=== PATIENT | female | born 1960 | race Caucasian/White ===

== ENCOUNTER 2021-03-20 11:26 | Emergency (ER) | payer MEDICARE, OTHER ==
[~2021-03-20] VITALS: Ht 157.5 cm; Wt 102.3 kg
[~2021-03-20 11:26] MED LIST: ALBU6.7H9 INH; AMLO2.5T2 PO; EST1T PO; LACT1CAP26 PO; LORA1TAB PO; METO50TA7 PO; OMEP20CA15 PO; OXYC1TAB17 PO; POTA10TA36 PO; THYR32.510 PO
[2021-03-20 12:04] VITALS: BP 172/108
[2021-03-20] MEDS ORDERED: BENZ-16 PO (12:58)
== END 2021-03-20 13:13 | disposition home or self-care (01) ==
LOC: ER 11:27
DX: U07.1 COVID-19 (principal); R53.83 Other fatigue; R07.89 Other chest pain; R06.02 Shortness of breath; R05 Cough; R42 Dizziness and giddiness; I10 Essential (primary) hypertension; E03.9 Hypothyroidism, unspecified; G89.29 Other chronic pain; Z98.890 Other specified postprocedural states; Z88.1 Allergy status to other antibiotic agents; Z91.040 Latex allergy status; Z88.8 Allergy status to other drugs, medicaments and biological substances; Z79.899 Other long term (current) drug therapy
CPT/HCPCS: 71045; 99283

== ENCOUNTER 2021-03-23 09:43 | Inpatient (IN) | payer MEDICARE, OTHER ==
[~2021-03-23] VITALS: Ht 157.5 cm; Wt 72.9 kg
[~2021-03-23 09:43] MED LIST changes: +BENZ-16 PO
[2021-03-23 11:31] LABS: ALANINE AMINOTRANSFERASE 69 U/L (12-78); ALBUMIN 3.3 G/DL (3.4-5.0); ALBUMIN/GLOBULIN RATIO 0.7 (1.1-1.5); ALKALINE PHOSPHATASE 321 IU/L (46-116); ANION GAP 13 (8-16); ASPARTATE AMINO TRANSFERASE 47 U/L (10-37); BILIRUBIN,TOTAL 0.7 MG/DL (0.1-1.0); BLOOD UREA NITROGEN 10 MG/DL (7-18); BUN/CREATININE RATIO 9.3 (6.6-38.0); C-REACTIVE PROTEIN 6.93 MG/DL (0.0-0.5); CALCIUM 8.5 MG/DL (8.5-10.1); CHLORIDE 101 MMOL/L (99-107); CREATININE 1.07 MG/DL (0.40-0.90); GLUCOSE 113 MG/DL (70-104); SODIUM 139 MMOL/L (135-145); TOTAL CARBON DIOXIDE 25.1 MMOL/L (24-32); TOTAL PROTEIN 8.3 G/DL (6.4-8.2); eGFR 52 ML/MIN
[2021-03-23 11:33] LABS: BASOPHILS % (AUTO) 0.1 % (0-1); EOSINOPHILS % (AUTO) 0.1 % (0-6); HEMATOCRIT 46.9 % (35.0-45.0); HEMOGLOBIN 15.4 g/dl (12.0-16.0); LYMPHOCYTES # (AUTO) 0.6 X10'3 (1.1-4.8); LYMPHOCYTES % (AUTO) 9.8 % (21-51); MEAN CORPUSCULAR HEMOGLOBIN 30.3 PG (27.0-31.0); MEAN CORPUSCULAR HGB CONC 32.9 g/dL (33.0-36.5); MEAN CORPUSCULAR VOLUME 92.2 FL (78-98); MONOCYTES # (AUTO) 0.5 X10'3 (0-0.9); MONOCYTES % (AUTO) 7.3 % (2-12); NEUTROPHILS # (AUTO) 5.4 X10'3 (1.8-7.7); NEUTROPHILS % (AUTO) 82.7 % (42-75); PLATELET COUNT 243 X10'3 (140-440); RED BLOOD COUNT 5.08 X10'6 (4.20-5.60); RED CELL DISTRIBUTION WIDTH 13.7 % (11.5-14.5); WHITE BLOOD COUNT 6.6 X10'3 (4.5-11.0)
[2021-03-23] MEDS ORDERED: ondansetron/PF 4mg/2ml inj IV ONE (12:00)
[2021-03-23] MEDS ORDERED: potassium Cl 40MEQ/1/2NS 520ml 520 ML IV PRN ×2 (12:50)
[2021-03-23] MEDS ORDERED: magnesium 2GM in 50ml NS 50 ML IV PRN (12:50)
[2021-03-23] MEDS ORDERED: acetaminophen 325mg tablet PO PRN ×2 (12:50)
[2021-03-23] MEDS ORDERED: mag hydrox/Alum hydrox/simeth 30ml oral suspension PO PRN (12:50)
[2021-03-23] MEDS ORDERED: ALBUTEROL INHALER 1 PUFF/90 MCG INHALER IH PRN (12:50)
[2021-03-23] MEDS ORDERED: magnesium 4gm in 100ml NS 100 ML IV PRN (12:50)
[2021-03-23] MEDS ORDERED: ondansetron/PF 4mg/2ml inj IV PRN (12:50)
[2021-03-23] MEDS ORDERED: HYDROcodone/acetaminophen 5mg/325mg tablet PO PRN (12:50)
[2021-03-23] MEDS ORDERED: potassium Cl 20 mEq SR tablet PO PRN (12:50)
[2021-03-23] MEDS ORDERED: magnesium hydroxide 30ml (MOM) UD suspension PO PRN (12:50)
[2021-03-23] MEDS ORDERED: metoprolol succinate 25mg (24-HOUR) SR. Tablet PO ONE (13:45)
[2021-03-23] MEDS: normal saline 1000ml 1,000 ML IV SCH ×2 (14:06→22:50)
[2021-03-23] MEDS: docusate sod 100mg capsule PO SCH (20:00)
[2021-03-23] MEDS: enoxaparin 50mg/0.5ml (from 3ml vial) syringe SUBCUT SCH (20:00)
[2021-03-23] MEDS: K and/or MAG REPLACEMENT MC SCH (20:00)
[2021-03-23] MEDS: dexamethasone inj 6 MG in normal saline 50ml IV soln 50 ML IV SCH (21:11)
--- NOTE | 2021-03-24 04:41 | NUR ---
PT SLEEPING AT THIS TIME. WILL CONTINUE TO MONITOR
[2021-03-24] MEDS: normal saline 1000ml 1,000 ML IV SCH ×2 (07:16→14:55)
--- NOTE | 2021-03-24 07:58 | NUR ---
PT C/O UUPSET STOMACH. MAALOX GIVEN
[2021-03-24] MEDS: docusate sod 100mg capsule PO SCH ×2 (08:00→20:00)
[2021-03-24] MEDS: K and/or MAG REPLACEMENT MC SCH ×2 (08:00→20:00)
[2021-03-24] MEDS: HYDROcodone/acetaminophen 10/325mg tab PO PRN ×2 (08:41→14:51)
[2021-03-24] MEDS: metoprolol succinate 25mg (24-HOUR) SR. Tablet PO SCH (08:42)
[2021-03-24 08:53] VITALS: BP 132/68
[2021-03-24] MEDS: dexamethasone inj 6 MG in normal saline 50ml IV soln 50 ML IV SCH ×2 (09:55→19:32)
[2021-03-24 10:21] LABS: BASOPHILS % (AUTO) 0.2 % (0-1); EOSINOPHILS % (AUTO) 0 % (0-6); HEMATOCRIT 41.7 % (35.0-45.0); HEMOGLOBIN 13.7 g/dl (12.0-16.0); LYMPHOCYTES # (AUTO) 0.7 X10'3 (1.1-4.8); LYMPHOCYTES % (AUTO) 13.2 % (21-51); MEAN CORPUSCULAR HGB CONC 32.8 g/dL (33.0-36.5); MEAN CORPUSCULAR VOLUME 91.5 FL (78-98); MEAN PLATELET VOLUME 8.7 FL (7.4-10.4); MONOCYTES # (AUTO) 0.4 X10'3 (0-0.9); MONOCYTES % (AUTO) 7.7 % (2-12); NEUTROPHILS # (AUTO) 4.2 X10'3 (1.8-7.7); NEUTROPHILS % (AUTO) 78.9 % (42-75); PLATELET COUNT 213 X10'3 (140-440); RED BLOOD COUNT 4.56 X10'6 (4.20-5.60); RED CELL DISTRIBUTION WIDTH 13.6 % (11.5-14.5); WHITE BLOOD COUNT 5.3 X10'3 (4.5-11.0)
[2021-03-24 10:22] LABS: D-DIMER 0.35 MG/L FEU (0-0.50)
[2021-03-24 10:29] LABS: ALANINE AMINOTRANSFERASE 50 U/L (12-78); ALBUMIN 2.5 G/DL (3.4-5.0); ALBUMIN/GLOBULIN RATIO 0.6 (1.1-1.5); ALKALINE PHOSPHATASE 237 IU/L (46-116); ANION GAP 12 (8-16); ASPARTATE AMINO TRANSFERASE 35 U/L (10-37); BILIRUBIN,TOTAL 0.6 MG/DL (0.1-1.0); BLOOD UREA NITROGEN 9 MG/DL (7-18); BUN/CREATININE RATIO 11.1 (6.6-38.0); C-REACTIVE PROTEIN 5.95 MG/DL (0.0-0.5); CALCIUM 7.2 MG/DL (8.5-10.1); CHLORIDE 107 MMOL/L (99-107); CREATININE 0.81 MG/DL (0.40-0.90); GLUCOSE 92 MG/DL (70-104); MAGNESIUM 1.8 MG/DL (1.5-2.4); POTASSIUM 3.5 MMOL/L (3.5-5.1); SODIUM 143 MMOL/L (135-145); TOTAL CARBON DIOXIDE 23.6 MMOL/L (24-32); TOTAL PROTEIN 6.9 G/DL (6.4-8.2); eGFR 72 ML/MIN
[2021-03-24 12:50] VITALS: BP 135/62
[2021-03-24 18:00] VITALS: BP 137/66
--- NOTE | 2021-03-24 19:14 | NUR ---
patient continues on o2 /3L NC O2 SATS 94% . C/O BACK AND NECK PAIN WHICH IS CHRONIC CONDITION FOR PATIENT MEDICATED WITH NORCO WITH EFFECT. C/O ANXIETY IS NORMALLY ON ATIVAN Q12HRS. DR NICHOLAS PAGED AND ORDER GIVEN FOR ATIVAN. WILL CONTINUE TO MONITOR
[2021-03-24] MEDS: enoxaparin 50mg/0.5ml (from 3ml vial) syringe SUBCUT SCH (19:32)
[2021-03-24] MEDS: LORazepam 1 MG tablet PO PRN (19:58)
[2021-03-24 23:52] VITALS: BP 150/84
--- NOTE | 2021-03-25 00:04 | NUR ---
Problems reprioritized. Patient report given, questions answered & plan of care reviewed with audi TERRY.
--- NOTE | 2021-03-25 00:15 | NUR ---
Patient in room COVID 05. I have received report from FREDDIE and had the opportunity to ask questions and assume patient care.
[2021-03-25] MEDS: normal saline 1000ml 1,000 ML IV SCH ×2 (00:29→12:00)
[2021-03-25 02:00] VITALS: BP 120/71
[2021-03-25] MEDS ORDERED: ROSU5TAB12 PO (03:15)
[2021-03-25] MEDS ORDERED: OMEP40CA21 PO (03:15)
[2021-03-25] MEDS ORDERED: THY60T PO (03:15)
[2021-03-25] MEDS ORDERED: AMLO10TA13 PO (03:15)
[2021-03-25] MEDS: HYDROcodone/acetaminophen 10/325mg tab PO PRN ×4 (03:21→20:29)
[2021-03-25] MEDS ORDERED: MONT10TA32 PO (03:41)
[2021-03-25] MEDS ORDERED: VENL150C58 PO (03:41)
[2021-03-25] MEDS ORDERED: FLUT1BLS4 INH (03:41)
--- NOTE | 2021-03-25 06:30 | NUR ---
Patient in room COVID 05. I have received report from HARRISON RIDDLE and had the opportunity to ask questions and assume patient care.
[2021-03-25 06:59] VITALS: BP 141/67
[2021-03-25] MEDS: K and/or MAG REPLACEMENT MC SCH ×2 (08:00→20:00)
[2021-03-25] MEDS: docusate sod 100mg capsule PO SCH ×2 (08:00→20:00)
[2021-03-25] MEDS: dexamethasone inj 6 MG in normal saline 50ml IV soln 50 ML IV SCH ×2 (09:22→20:29)
[2021-03-25] MEDS: enoxaparin 50mg/0.5ml (from 3ml vial) syringe SUBCUT SCH ×2 (09:22→20:29)
[2021-03-25] MEDS: metoprolol succinate 25mg (24-HOUR) SR. Tablet PO SCH (09:22)
[2021-03-25 09:39] LABS: D-DIMER 0.21 MG/L FEU (0-0.50)
[2021-03-25 09:51] LABS: ALANINE AMINOTRANSFERASE 43 U/L (12-78); ALBUMIN 2.5 G/DL (3.4-5.0); ALBUMIN/GLOBULIN RATIO 0.6 (1.1-1.5); ALKALINE PHOSPHATASE 214 IU/L (46-116); ANION GAP 10 (8-16); ASPARTATE AMINO TRANSFERASE 37 U/L (10-37); BILIRUBIN,TOTAL 0.4 MG/DL (0.1-1.0); BLOOD UREA NITROGEN 9 MG/DL (7-18); BUN/CREATININE RATIO 9.5 (6.6-38.0); CALCIUM 7.8 MG/DL (8.5-10.1); CHLORIDE 108 MMOL/L (99-107); CREATININE 0.95 MG/DL (0.40-0.90); GLUCOSE 126 MG/DL (70-104); MAGNESIUM 2.2 MG/DL (1.5-2.4); POTASSIUM 3.4 MMOL/L (3.5-5.1); SODIUM 145 MMOL/L (135-145); TOTAL CARBON DIOXIDE 27.2 MMOL/L (24-32); TOTAL PROTEIN 6.8 G/DL (6.4-8.2); eGFR 60 ML/MIN
[2021-03-25 09:53] LABS: BASOPHILS % (AUTO) 0.1 % (0-1); EOSINOPHILS % (AUTO) 0 % (0-6); HEMATOCRIT 39.6 % (35.0-45.0); HEMOGLOBIN 12.9 g/dl (12.0-16.0); LYMPHOCYTES % (AUTO) 12.1 % (21-51); MEAN CORPUSCULAR HEMOGLOBIN 30.3 PG (27.0-31.0); MEAN CORPUSCULAR HGB CONC 32.6 g/dL (33.0-36.5); MEAN PLATELET VOLUME 9.1 FL (7.4-10.4); MONOCYTES # (AUTO) 0.5 X10'3 (0-0.9); MONOCYTES % (AUTO) 6.2 % (2-12); NEUTROPHILS # (AUTO) 6.7 X10'3 (1.8-7.7); NEUTROPHILS % (AUTO) 81.6 % (42-75); PLATELET COUNT 246 X10'3 (140-440); RED BLOOD COUNT 4.26 X10'6 (4.20-5.60); RED CELL DISTRIBUTION WIDTH 13.8 % (11.5-14.5); WHITE BLOOD COUNT 8.2 X10'3 (4.5-11.0)
[2021-03-25 11:43] VITALS: BP 140/76
[2021-03-25] MEDS ORDERED: REMDESIVIR INJ 200 MG in normal saline 100ml IV soln 60 ML IV ONE (12:00)
--- NOTE | 2021-03-25 12:16 | NUR ---
Malnutrition consult: Pt admitted w/ AFT d/t Covid per EMR. Per RN, pt has not stated any wt loss hx or decrease in appetite. Pt currently eating 50-75% of meals on Heart healthy diet. Per RN, no visible signs of muscle waisting observed. No edema present. At this time, pt does not meet minimum criteria for malnutrition. Will continue to monitor. Addendum: 03/25/21 at [address] Amended: Links added.
[2021-03-25] MEDS: loperamide 2mg capsule PO PRN ×2 (13:45→20:29)
[2021-03-25] MEDS: potassium Cl 20 mEq SR tablet PO PRN ×2 (13:45→20:29)
[2021-03-25 14:00] VITALS: BP 149/90
[2021-03-25] MEDS: LORazepam 1 MG tablet PO PRN (17:39)
--- NOTE | 2021-03-25 19:19 | NUR ---
Problems reprioritized. Patient report given, questions answered & plan of care reviewed with Meli Fernandez.
[2021-03-25 22:00] VITALS: BP 147/83
[2021-03-26] MEDS: normal saline 1000ml 1,000 ML IV SCH (00:50)
[2021-03-26 02:00] VITALS: BP 162/95
[2021-03-26 06:00] VITALS: BP 164/60
--- NOTE | 2021-03-26 07:01 | NUR ---
Patient in room [facility]TH[facility] 4011B. I have received report from HARRISON Fernandez and had the opportunity to ask questions and assume patient care.
[2021-03-26 07:59] LABS: BASOPHILS % (AUTO) 0.1 % (0-1); EOSINOPHILS % (AUTO) 0 % (0-6); HEMATOCRIT 39.1 % (35.0-45.0); HEMOGLOBIN 12.8 g/dl (12.0-16.0); LYMPHOCYTES % (AUTO) 15.1 % (21-51); MEAN CORPUSCULAR HGB CONC 32.6 g/dL (33.0-36.5); MEAN PLATELET VOLUME 9.1 FL (7.4-10.4); MONOCYTES # (AUTO) 0.7 X10'3 (0-0.9); MONOCYTES % (AUTO) 10.7 % (2-12); NEUTROPHILS # (AUTO) 4.9 X10'3 (1.8-7.7); NEUTROPHILS % (AUTO) 74.1 % (42-75); PLATELET COUNT 266 X10'3 (140-440); RED BLOOD COUNT 4.25 X10'6 (4.20-5.60); RED CELL DISTRIBUTION WIDTH 13.9 % (11.5-14.5); WHITE BLOOD COUNT 6.6 X10'3 (4.5-11.0)
[2021-03-26] MEDS: docusate sod 100mg capsule PO SCH ×2 (08:00→20:00)
[2021-03-26] MEDS: K and/or MAG REPLACEMENT MC SCH ×2 (08:00→20:00)
[2021-03-26] MEDS: metoprolol succinate 25mg (24-HOUR) SR. Tablet PO SCH (08:00)
[2021-03-26] MEDS: dexamethasone inj 6 MG in normal saline 50ml IV soln 50 ML IV SCH ×2 (08:22→19:39)
[2021-03-26 08:27] LABS: ALANINE AMINOTRANSFERASE 38 U/L (12-78); ALBUMIN 2.6 G/DL (3.4-5.0); ALBUMIN/GLOBULIN RATIO 0.6 (1.1-1.5); ALKALINE PHOSPHATASE 195 IU/L (46-116); ANION GAP 7 (8-16); ASPARTATE AMINO TRANSFERASE 31 U/L (10-37); BILIRUBIN,TOTAL 0.5 MG/DL (0.1-1.0); BLOOD UREA NITROGEN 9 MG/DL (7-18); BUN/CREATININE RATIO 9.6 (6.6-38.0); C-REACTIVE PROTEIN 1.43 MG/DL (0.0-0.5); CALCIUM 7.9 MG/DL (8.5-10.1); CHLORIDE 111 MMOL/L (99-107); CREATININE 0.94 MG/DL (0.40-0.90); GLUCOSE 97 MG/DL (70-104); MAGNESIUM 2.3 MG/DL (1.5-2.4); POTASSIUM 4.5 MMOL/L (3.5-5.1); SODIUM 146 MMOL/L (135-145); TOTAL CARBON DIOXIDE 27.7 MMOL/L (24-32); TOTAL PROTEIN 6.8 G/DL (6.4-8.2); eGFR 61 ML/MIN
[2021-03-26] MEDS: thyroid, pork 30mg tablet PO SCH (08:29)
[2021-03-26] MEDS: venlafaxine XR 75mg capsule (Q24H) PO SCH (08:29)
[2021-03-26 08:30] LABS: D-DIMER < 0.19 MG/L FEU (0-0.50)
[2021-03-26] MEDS: estradiol 1mg tablet PO SCH (08:30)
[2021-03-26] MEDS: REMDESIVIR INJ 100 MG in normal saline 100ml IV soln 80 ML IV SCH (08:31)
[2021-03-26] MEDS: enoxaparin 50mg/0.5ml (from 3ml vial) syringe SUBCUT SCH ×2 (08:33→19:41)
[2021-03-26] MEDS: HYDROcodone/acetaminophen 10/325mg tab PO PRN ×3 (08:37→20:35)
[2021-03-26] MEDS: loperamide 2mg capsule PO PRN ×2 (08:55→15:06)
[2021-03-26 10:00] VITALS: BP 155/84
[2021-03-26 14:00] VITALS: BP 157/70
[2021-03-26 18:00] VITALS: BP 129/77
--- NOTE | 2021-03-26 18:30 | NUR ---
Assumed care of pt at this time report from Jimena TERRY.
[2021-03-26] MEDS: LORazepam 1 MG tablet PO PRN (19:39)
[2021-03-26 22:00] VITALS: BP 151/80
[2021-03-27 02:00] VITALS: BP 157/65
--- NOTE | 2021-03-27 06:42 | NUR ---
Report to Maricarmen TERRY.
[2021-03-27 07:00] VITALS: BP 167/90
[2021-03-27 07:38] LABS: BASOPHILS % (AUTO) 0.5 % (0-1); EOSINOPHILS % (AUTO) 0 % (0-6); HEMATOCRIT 42.1 % (35.0-45.0); HEMOGLOBIN 13.7 g/dl (12.0-16.0); LYMPHOCYTES # (AUTO) 1.4 X10'3 (1.1-4.8); LYMPHOCYTES % (AUTO) 19.8 % (21-51); MEAN CORPUSCULAR HEMOGLOBIN 30.1 PG (27.0-31.0); MEAN CORPUSCULAR HGB CONC 32.5 g/dL (33.0-36.5); MEAN CORPUSCULAR VOLUME 92.7 FL (78-98); MEAN PLATELET VOLUME 9.2 FL (7.4-10.4); MONOCYTES # (AUTO) 0.7 X10'3 (0-0.9); MONOCYTES % (AUTO) 9.7 % (2-12); NEUTROPHILS # (AUTO) 4.8 X10'3 (1.8-7.7); PLATELET COUNT 312 X10'3 (140-440); RED BLOOD COUNT 4.54 X10'6 (4.20-5.60); RED CELL DISTRIBUTION WIDTH 13.6 % (11.5-14.5); WHITE BLOOD COUNT 6.8 X10'3 (4.5-11.0)
[2021-03-27 07:45] LABS: D-DIMER 0.27 MG/L FEU (0-0.50)
[2021-03-27] MEDS: metoprolol succinate 25mg (24-HOUR) SR. Tablet PO SCH (08:00)
[2021-03-27] MEDS: docusate sod 100mg capsule PO SCH (08:00)
[2021-03-27] MEDS: K and/or MAG REPLACEMENT MC SCH (08:00)
[2021-03-27 08:04] LABS: ALANINE AMINOTRANSFERASE 39 U/L (12-78); ALBUMIN 2.8 G/DL (3.4-5.0); ALBUMIN/GLOBULIN RATIO 0.7 (1.1-1.5); ALKALINE PHOSPHATASE 195 IU/L (46-116); ANION GAP 10 (8-16); ASPARTATE AMINO TRANSFERASE 28 U/L (10-37); BILIRUBIN,TOTAL 0.4 MG/DL (0.1-1.0); BLOOD UREA NITROGEN 11 MG/DL (7-18); BUN/CREATININE RATIO 12.8 (6.6-38.0); C-REACTIVE PROTEIN 0.42 MG/DL (0.0-0.5); CALCIUM 8.1 MG/DL (8.5-10.1); CHLORIDE 105 MMOL/L (99-107); CREATININE 0.86 MG/DL (0.40-0.90); GLUCOSE 92 MG/DL (70-104); MAGNESIUM 2.4 MG/DL (1.5-2.4); POTASSIUM 3.6 MMOL/L (3.5-5.1); SODIUM 142 MMOL/L (135-145); TOTAL CARBON DIOXIDE 27.1 MMOL/L (24-32); TOTAL PROTEIN 7.1 G/DL (6.4-8.2); eGFR 67 ML/MIN
[2021-03-27] MEDS: dexamethasone inj 6 MG in normal saline 50ml IV soln 50 ML IV SCH (09:07)
[2021-03-27] MEDS: thyroid, pork 30mg tablet PO SCH (09:07)
[2021-03-27] MEDS: venlafaxine XR 75mg capsule (Q24H) PO SCH (09:07)
[2021-03-27] MEDS: enoxaparin 50mg/0.5ml (from 3ml vial) syringe SUBCUT SCH (09:08)
[2021-03-27] MEDS: estradiol 1mg tablet PO SCH (09:08)
[2021-03-27] MEDS: loperamide 2mg capsule PO PRN (09:21)
[2021-03-27] MEDS: HYDROcodone/acetaminophen 10/325mg tab PO PRN (09:21)
[2021-03-27] MEDS: REMDESIVIR INJ 100 MG in normal saline 100ml IV soln 80 ML IV SCH (09:59)
[2021-03-27 11:00] VITALS: BP 144/98
--- NOTE | 2021-03-27 11:57 | NUR ---
Page sent to PIERRE.Lizet, Emma [id number]: Dr. Messer would like this patient sent home with O2. I will complete template, she says she is discharging today. thank you!
[2021-03-27] MEDS ORDERED: PRED10TA23 PO (12:00)
--- NOTE | 2021-03-27 13:04 | NUR ---
O2 Sat at rest on room air:___% If below 89%: Recovery O2 Sat at rest on ___LPM:___%:___% via (mask/nasal cannula, etc..) No further documentation is necessary. If O2 Sat did not drop below 89% on room air,ambulate patient on room air. O2 Sat while ambulating on room air:88% Recovery O2 Sat while ambulating on 2LPM:92% No further documentation is necessary. If patient does not drop below 89% while ambulating, he/she does not qualify for home O2. Addendum: 03/27/21 at 1402 by Josie Toussaint RN O2 Sat at rest on room air:92% If below 89%: Recovery O2 Sat at rest on ___LPM:___%:___% via (mask/nasal cannula, etc..) No further documentation is necessary. If O2 Sat did not drop below 89% on room air,ambulate patient on room air. O2 Sat while ambulating on room air:88% Recovery O2 Sat while ambulating on 2LPM:92% No further documentation is necessary. If patient does not drop below 89% while ambulating, he/she does not qualify for home O2.
[2021-03-27 14:00] VITALS: BP 146/72
--- NOTE | 2021-03-27 16:11 | NUR ---
Patient stable and appropriate for discharge home with . IV removed, all belongings taken from room. Oxygen was delivered to bedside. New RX called into preferred pharmacy. All discharge instructions and education given and reviewed with patient, all questions answered.
== END 2021-03-27 16:10 | disposition home or self-care (01) | DRG 177 ==
LOC: ER 09:43 → ED HOLD 12:54 → COVID IP 03-24 08:25 → ORTHO 4S 03-25 18:34
PROVIDERS: ADMIT Family Medicine; ATTEND Family Medicine
PROC: XW033E5 Introduction of Remdesivir Anti-infective into Peripheral Vein, Percutaneous Approach, New Technology Group 5 (ICD-10-PCS; principal; 2021-03-25)
DX: U07.1 COVID-19 (principal); J96.01 Acute respiratory failure with hypoxia; J12.82 Pneumonia due to coronavirus disease 2019; E87.6 Hypokalemia; I10 Essential (primary) hypertension; R00.0 Tachycardia, unspecified; G89.29 Other chronic pain; R11.10 Vomiting, unspecified; E03.9 Hypothyroidism, unspecified; J45.909 Unspecified asthma, uncomplicated; Z90.710 Acquired absence of both cervix and uterus; Z88.8 Allergy status to other drugs, medicaments and biological substances; Z91.040 Latex allergy status; Z79.899 Other long term (current) drug therapy; Z90.49 Acquired absence of other specified parts of digestive tract
CPT/HCPCS: 36415; 71045; 80053; 83735; 83880; 84145; 84484; 85025; 85379; 86140; 87081; 93005; 94760; 96374; 97110; 97116; 97161; 97530; 99283; 99285; G0378; J1100; J1650; J2405; J3480; J7030

== ENCOUNTER 2023-12-28 10:49 | Inpatient (IN) | payer MEDICARE, OTHER ==
[~2023-12-28] VITALS: Ht 157.5 cm; Wt 100.0 kg
[2023-12-28] VITALS (10 sets, daily range): BP systolic 153; BP diastolic 95; PULSE 77–103; RESP 16–24; TEMP 97.2; O2SAT 90–99
[~2023-12-28 10:49] MED LIST changes: +ALBU6.7H14 INH; -ALBU6.7H9 INH; +AMLO10TA13 PO; -AMLO2.5T2 PO; -BENZ-16 PO; +FLUT1BLS4 INH; -LACT1CAP26 PO; -LORA1TAB PO; +MONT-40 PO; -OMEP20CA15 PO; +OMEP40CA21 PO; -OXYC1TAB17 PO; -POTA10TA36 PO; +ROSU5TAB12 PO; +THY60T PO; -THYR32.510 PO; +VENL150C58 PO
[2023-12-28] MEDS ORDERED: albuterol 2.5 MG/3 ML nebule CONTNEB PRN (11:45)
[2023-12-28] MEDS: dexamethasone sod phosphate 10mg/ml inj IV STA (12:04)
[2023-12-28] MEDS: normal saline 1000ml 1,000 ML IV ONE (12:04)
[2023-12-28] MEDS: albuterol 2.5 MG/3 ML nebule NEB ONE (12:44)
[2023-12-28 12:59] LABS: BASOPHILS # (AUTO) 0.1 X10'3 (0-0.2); BASOPHILS % (AUTO) 0.7 % (0-1); EOSINOPHILS # (AUTO) 0.3 X10'3 (0-0.9); EOSINOPHILS % (AUTO) 3.1 % (0-6); HEMOGLOBIN 14.1 g/dl (12.0-16.0); LYMPHOCYTES # (AUTO) 1.8 X10'3 (1.1-4.8); MEAN CORPUSCULAR HEMOGLOBIN 30.5 PG (27.0-31.0); MEAN CORPUSCULAR HGB CONC 32.9 g/dL (33.0-36.5); MEAN CORPUSCULAR VOLUME 92.6 FL (78-98); MEAN PLATELET VOLUME 8.6 FL (7.4-10.4); MONOCYTES # (AUTO) 0.7 X10'3 (0-0.9); MONOCYTES % (AUTO) 8.2 % (2-12); NEUTROPHILS # (AUTO) 5.9 X10'3 (1.8-7.7); PLATELET COUNT 293 X10'3 (140-440); RED BLOOD COUNT 4.64 X10'6 (4.20-5.60); RED CELL DISTRIBUTION WIDTH 14.2 % (11.5-14.5); WHITE BLOOD COUNT 8.8 X10'3 (4.5-11.0)
[2023-12-28] MEDS: normal saline 1000ml 1,000 ML IV SCH ×2 (13:00→15:01)
[2023-12-28] MEDS: CefTRIAXone/D5W-Rocephin 1gm 50 ML IV ONE (13:00)
[2023-12-28 13:12] LABS: ALBUMIN 3.7 G/DL (3.4-5.0); ANION GAP 8 (8-16); BLOOD UREA NITROGEN 12 MG/DL (7-18); BUN/CREATININE RATIO 12.2 (10.0-20.0); CALCIUM 8.7 MG/DL (8.5-10.1); CHLORIDE 102 MMOL/L (99-107); CREATININE 0.98 MG/DL (0.40-0.90); GLUCOSE 91 MG/DL (70-104); POTASSIUM 4.1 MMOL/L (3.5-5.1); PRO BRAIN NATRIURETIC PEPTIDE 96 PG/ML (0-125); SODIUM 139 MMOL/L (135-145); TOTAL CARBON DIOXIDE 28.7 MMOL/L (24-32); eCRCL 46 ML/MIN; eGFR 57 ML/MIN
[2023-12-28] MEDS: azithromycin/NS 500mg/250ml 250 ML IV SCH (13:55)
[2023-12-28] MEDS: oxyCODONE/APAP 5-325mg tablet PO ONE (14:08)
[2023-12-28] MEDS ORDERED: ondansetron/PF 4mg/2ml inj IV PRN (14:50)
[2023-12-28] MEDS ORDERED: magnesium 2GM in 50ml NS 50 ML IV PRN (14:50)
[2023-12-28] MEDS ORDERED: magnesium Cl slow-release 64mg tablet PO PRN (14:50)
[2023-12-28] MEDS ORDERED: magnesium 4gm in 100ml NS 100 ML IV PRN (14:50)
[2023-12-28] MEDS ORDERED: potassium Cl 20 mEq SR tablet PO PRN ×2 (14:50)
[2023-12-28] MEDS ORDERED: acetaminophen 325mg tablet PO PRN ×2 (14:50)
[2023-12-28] MEDS ORDERED: potassium Cl 40MEQ/1/2NS 520ml 520 ML IV PRN (14:50)
[2023-12-28] MEDS ORDERED: mag hydrox/Alum hydrox/simeth 30ml oral suspension PO PRN (14:50)
[2023-12-28] MEDS ORDERED: HYDROmorphone/PF 0.2 MG/ML SYRINGE IV PRN (14:50)
[2023-12-28] MEDS: ipratropium/albuterol 3ml nebule NEB SCH (14:53)
[2023-12-28] MEDS: methylPREDNISolone sod succ 125mg/2ml vial IV ONE (15:19)
[2023-12-28] MEDS ORDERED: albuterol 2.5 MG/3 ML nebule NEB SCH (16:00)
[2023-12-28 16:13] LABS: BILIRUBIN,URINE NEGATIVE (Neg); CLARITY,URINE CLEAR (Clear); COLOR,URINE YELLOW (Yellow); GLUCOSE, URINE NEGATIVE (Neg); KETONES,URINE NEGATIVE (Neg); LEUKOCYTE ESTERASE ,URINE NEGATIVE (Neg); NITRITES, URINE NEGATIVE (Neg); OCCULT BLOOD,URINE NEGATIVE (Neg); PROTEIN,URINE NEGATIVE (Neg); UROBILINOGEN,URINE 0.2 E.U/dL (0.2-1.0)
[2023-12-28 16:16] LABS: UA COLLECTION TYPE CLN CATCH MIDSTREAM
[2023-12-28] MEDS: amLODIPine 5mg tablet PO SCH (18:10)
[2023-12-28] MEDS: HYDROmorphone inj. 0.5 MG/0.5 ML DISP.SYRIN IV PRN (19:03)
[2023-12-28] MEDS: famotidine 20mg tablet PO SCH (19:03)
[2023-12-28] MEDS ORDERED: OXYC1TAB17 PO (19:51)
[2023-12-28] MEDS ORDERED: LORA-269 PO (19:51)
[2023-12-28] MEDS ORDERED: ALBU10.7 PO (19:51)
[2023-12-28] MEDS ORDERED: THYR30TA2 PO (19:51)
[2023-12-28] MEDS: K and/or MAG REPLACEMENT MC SCH (20:00)
[2023-12-28] MEDS: methylPREDNISolone sod succ/PF 40mg inj. IV SCH (20:33)
[2023-12-28] MEDS: heparin, porcine 5000 units/ml vial SQ SCH (20:33)
[2023-12-28] MEDS: oxyCODONE/APAP 10/325mg tablet PO PRN (22:56)
[2023-12-29] VITALS (16 sets, daily range): BP systolic 134–147; BP diastolic 79–91; PULSE 89–113; RESP 16–20; TEMP 97–98.3; O2SAT 88–100
[2023-12-29 06:29] LABS: BASOPHILS % (AUTO) 0.3 % (0-1); EOSINOPHILS % (AUTO) 0 % (0-6); HEMATOCRIT 39.6 % (35.0-45.0); HEMOGLOBIN 12.8 g/dl (12.0-16.0); LYMPHOCYTES # (AUTO) 1.3 X10'3 (1.1-4.8); MEAN CORPUSCULAR HGB CONC 32.4 g/dL (33.0-36.5); MEAN CORPUSCULAR VOLUME 92.7 FL (78-98); MEAN PLATELET VOLUME 8.1 FL (7.4-10.4); MONOCYTES # (AUTO) 0.3 X10'3 (0-0.9); MONOCYTES % (AUTO) 1.8 % (2-12); NEUTROPHILS # (AUTO) 12.7 X10'3 (1.8-7.7); NEUTROPHILS % (AUTO) 88.9 % (42-75); PLATELET COUNT 287 X10'3 (140-440); RED BLOOD COUNT 4.28 X10'6 (4.20-5.60); RED CELL DISTRIBUTION WIDTH 13.9 % (11.5-14.5); WHITE BLOOD COUNT 14.2 X10'3 (4.5-11.0)
[2023-12-29 06:47] LABS: ALBUMIN 3.3 G/DL (3.4-5.0); ANION GAP 10 (8-16); BLOOD UREA NITROGEN 13 MG/DL (7-18); BUN/CREATININE RATIO 13.8 (10.0-20.0); CALCIUM 8.7 MG/DL (8.5-10.1); CHLORIDE 102 MMOL/L (99-107); CREATININE 0.94 MG/DL (0.40-0.90); GLUCOSE 152 MG/DL (70-104); MAGNESIUM 1.9 MG/DL (1.5-2.4); PHOSPHORUS 2.4 MG/DL (2.3-4.5); POTASSIUM 3.6 MMOL/L (3.5-5.1); SODIUM 136 MMOL/L (135-145); TOTAL CARBON DIOXIDE 24.3 MMOL/L (24-32); eCRCL 48 ML/MIN; eGFR 60 ML/MIN
[2023-12-29] MEDS: CefTRIAXone/D5W-Rocephin 1gm 50 ML IV SCH (07:28)
[2023-12-29] MEDS: guaiFENesin ER 600mg tablet PO SCH (07:28)
[2023-12-29] MEDS ORDERED: azithromycin/NS 500mg/250ml 250 ML IV SCH (08:00)
[2023-12-29 09:10] LABS: APTT 26 SECONDS (22-32); D-DIMER 0.46 MG/L FEU (0-0.50); PROTHROMBIN TIME 10.9 SECONDS (9.0-12.0)
[2023-12-29] MEDS: metoprolol succinate 25mg (24-HOUR) SR. Tablet PO SCH (10:15)
[2023-12-29] MEDS: montelukast 10mg tablet PO SCH (10:15)
[2023-12-29] MEDS: nystatin 500,000 unit/5ML UD oral suspension PO PRN (21:46)
[2023-12-30] VITALS (15 sets, daily range): BP systolic 130–188; BP diastolic 82–110; PULSE 82–107; RESP 13–20; TEMP 97.2–98.9; O2SAT 93–97
[2023-12-30 06:56] LABS: BASOPHILS % (AUTO) 0.1 % (0-1); EOSINOPHILS % (AUTO) 0 % (0-6); HEMATOCRIT 39.5 % (35.0-45.0); LYMPHOCYTES # (AUTO) 1.5 X10'3 (1.1-4.8); LYMPHOCYTES % (AUTO) 6.8 % (21-51); MEAN CORPUSCULAR HEMOGLOBIN 30.2 PG (27.0-31.0); MEAN CORPUSCULAR HGB CONC 32.9 g/dL (33.0-36.5); MEAN CORPUSCULAR VOLUME 91.8 FL (78-98); MEAN PLATELET VOLUME 8.1 FL (7.4-10.4); MONOCYTES # (AUTO) 0.9 X10'3 (0-0.9); MONOCYTES % (AUTO) 4.2 % (2-12); NEUTROPHILS % (AUTO) 88.9 % (42-75); PLATELET COUNT 301 X10'3 (140-440); RED BLOOD COUNT 4.31 X10'6 (4.20-5.60); RED CELL DISTRIBUTION WIDTH 14.8 % (11.5-14.5); WHITE BLOOD COUNT 21.4 X10'3 (4.5-11.0)
[2023-12-30 07:02] LABS: ALBUMIN 3.5 G/DL (3.4-5.0); ANION GAP 12 (8-16); BLOOD UREA NITROGEN 12 MG/DL (7-18); BUN/CREATININE RATIO 14.5 (10.0-20.0); CALCIUM 8.8 MG/DL (8.5-10.1); CHLORIDE 105 MMOL/L (99-107); CREATININE 0.83 MG/DL (0.40-0.90); GLUCOSE 126 MG/DL (70-104); MAGNESIUM 2.2 MG/DL (1.5-2.4); PHOSPHORUS 3.1 MG/DL (2.3-4.5); POTASSIUM 3.8 MMOL/L (3.5-5.1); SODIUM 141 MMOL/L (135-145); TOTAL CARBON DIOXIDE 24.1 MMOL/L (24-32); eCRCL 55 ML/MIN; eGFR 69 ML/MIN
[2023-12-30] MEDS ORDERED: non-formulary drug (Amlodipine Besylate 1 TAB) PO SCH (08:00)
[2023-12-30] MEDS ORDERED: non-formulary drug (Metoprolol Succinate* (Toprol Xl*) 1 TAB) PO SCH (08:00)
[2023-12-30] MEDS: atorvastatin 20mg tablet PO SCH (08:41)
[2023-12-30] MEDS: estradiol 1mg tablet PO SCH (08:42)
[2023-12-30] MEDS: pantoprazole 40mg Tablet.DR PO SCH (08:42)
[2023-12-30 09:42] LABS: BASOPHILS # (AUTO) 0.1 X10'3 (0-0.2); BASOPHILS % (AUTO) 0.2 % (0-1); EOSINOPHILS % (AUTO) 0 % (0-6); HEMATOCRIT 39.9 % (35.0-45.0); HEMOGLOBIN 12.8 g/dl (12.0-16.0); LYMPHOCYTES # (AUTO) 1.9 X10'3 (1.1-4.8); LYMPHOCYTES % (AUTO) 8.2 % (21-51); MEAN CORPUSCULAR HEMOGLOBIN 29.7 PG (27.0-31.0); MEAN CORPUSCULAR HGB CONC 32.2 g/dL (33.0-36.5); MEAN CORPUSCULAR VOLUME 92.4 FL (78-98); MEAN PLATELET VOLUME 8.1 FL (7.4-10.4); MONOCYTES # (AUTO) 1.1 X10'3 (0-0.9); MONOCYTES % (AUTO) 4.7 % (2-12); NEUTROPHILS # (AUTO) 19.7 X10'3 (1.8-7.7); NEUTROPHILS % (AUTO) 86.9 % (42-75); PLATELET COUNT 331 X10'3 (140-440); RED BLOOD COUNT 4.31 X10'6 (4.20-5.60); WHITE BLOOD COUNT 22.7 X10'3 (4.5-11.0)
[2023-12-30] MEDS: SUMAtriptan 25 MG tablet PO ONE (10:34)
[2023-12-30] MEDS: venlafaxine XR 75mg capsule (Q24H) PO SCH (10:34)
[2023-12-30 12:19] LABS: PLATELET ESTIMATE NORMAL; TOTAL CELLS COUNTED 100
[2023-12-30] MEDS ORDERED: normal saline 500ml IV soln 500 ML IV SCH (14:50)
[2023-12-30] MEDS: normal saline 1000ml 2,000 ML IV ONE (15:37)
[2023-12-30] MEDS: piperacillin/tazobactam inj. 3.375 GM in NS 50ml IV SCH (16:42)
[2023-12-30] MEDS ORDERED: hydrALAZINE 20mg/ml inj. IV PRN (17:45)
[2023-12-30] MEDS: hydrALAZINE 20mg/ml inj. IV ONE ×2 (17:46→17:47)
[2023-12-30] MEDS: LORazepam 1 MG tablet PO PRN (19:29)
[2023-12-30] MEDS: methylPREDNISolone sod succ/PF 40mg inj. IV SCH (19:31)
[2023-12-30] MEDS: normal saline 1000ml 1,000 ML IV SCH (19:42)
[2023-12-31] VITALS (15 sets, daily range): BP systolic 137–155; BP diastolic 65–89; PULSE 74–108; RESP 16–22; TEMP 97.1–97.8; O2SAT 92–96
[2023-12-31 07:57] LABS: BASOPHILS % (AUTO) 0.1 % (0-1); EOSINOPHILS % (AUTO) 0.1 % (0-6); HEMATOCRIT 40.3 % (35.0-45.0); LYMPHOCYTES # (AUTO) 1.3 X10'3 (1.1-4.8); LYMPHOCYTES % (AUTO) 8.6 % (21-51); MEAN CORPUSCULAR HGB CONC 32.4 g/dL (33.0-36.5); MEAN CORPUSCULAR VOLUME 92.8 FL (78-98); MONOCYTES # (AUTO) 0.3 X10'3 (0-0.9); NEUTROPHILS # (AUTO) 14.1 X10'3 (1.8-7.7); NEUTROPHILS % (AUTO) 89.2 % (42-75); PLATELET COUNT 288 X10'3 (140-440); RED BLOOD COUNT 4.35 X10'6 (4.20-5.60); RED CELL DISTRIBUTION WIDTH 15.1 % (11.5-14.5); WHITE BLOOD COUNT 15.7 X10'3 (4.5-11.0)
[2023-12-31 08:35] LABS: ALBUMIN 3.5 G/DL (3.4-5.0); ANION GAP 12 (8-16); BLOOD UREA NITROGEN 11 MG/DL (7-18); BUN/CREATININE RATIO 12.8 (10.0-20.0); CALCIUM 8.3 MG/DL (8.5-10.1); CHLORIDE 104 MMOL/L (99-107); CREATININE 0.86 MG/DL (0.40-0.90); GLUCOSE 132 MG/DL (70-104); MAGNESIUM 2.2 MG/DL (1.5-2.4); PHOSPHORUS 3.3 MG/DL (2.3-4.5); POTASSIUM 3.6 MMOL/L (3.5-5.1); SODIUM 141 MMOL/L (135-145); TOTAL CARBON DIOXIDE 24.8 MMOL/L (24-32); eCRCL 53 ML/MIN; eGFR 67 ML/MIN
[2023-12-31] MEDS: SUMAtriptan 25 MG tablet PO ONE (10:00)
[2023-12-31] MEDS: benzonatate 100mg capsule PO SCH (13:20)
[2023-12-31] MEDS: chlorthalidone 25mg tablet PO SCH (13:20)
[2023-12-31] MEDS: methylPREDNISolone sod succ/PF 40mg inj. IV SCH (17:02)
[2024-01-01] VITALS (15 sets, daily range): BP systolic 130–157; BP diastolic 75–98; PULSE 71–103; RESP 16–20; TEMP 97.5–98; O2SAT 92–98
[2024-01-01 06:51] LABS: BASOPHILS % (AUTO) 0.2 % (0-1); EOSINOPHILS % (AUTO) 0 % (0-6); HEMATOCRIT 40.7 % (35.0-45.0); HEMOGLOBIN 13.4 g/dl (12.0-16.0); LYMPHOCYTES # (AUTO) 1.6 X10'3 (1.1-4.8); LYMPHOCYTES % (AUTO) 10.5 % (21-51); MEAN CORPUSCULAR HEMOGLOBIN 30.3 PG (27.0-31.0); MEAN CORPUSCULAR VOLUME 91.7 FL (78-98); MEAN PLATELET VOLUME 8.2 FL (7.4-10.4); MONOCYTES # (AUTO) 0.7 X10'3 (0-0.9); MONOCYTES % (AUTO) 4.5 % (2-12); NEUTROPHILS # (AUTO) 13.1 X10'3 (1.8-7.7); NEUTROPHILS % (AUTO) 84.8 % (42-75); PLATELET COUNT 322 X10'3 (140-440); RED BLOOD COUNT 4.44 X10'6 (4.20-5.60); RED CELL DISTRIBUTION WIDTH 14.6 % (11.5-14.5); WHITE BLOOD COUNT 15.5 X10'3 (4.5-11.0)
[2024-01-01 07:04] LABS: ALBUMIN 3.6 G/DL (3.4-5.0); ANION GAP 9 (8-16); BLOOD UREA NITROGEN 13 MG/DL (7-18); BUN/CREATININE RATIO 12.6 (10.0-20.0); CALCIUM 8.7 MG/DL (8.5-10.1); CHLORIDE 100 MMOL/L (99-107); CREATININE 1.03 MG/DL (0.40-0.90); GLUCOSE 142 MG/DL (70-104); MAGNESIUM 2.2 MG/DL (1.5-2.4); PHOSPHORUS 3.7 MG/DL (2.3-4.5); POTASSIUM 3.1 MMOL/L (3.5-5.1); SODIUM 138 MMOL/L (135-145); TOTAL CARBON DIOXIDE 28.9 MMOL/L (24-32); eCRCL 44 ML/MIN; eGFR 54 ML/MIN
[2024-01-01] MEDS ORDERED: magnesium Cl slow-release 64mg tablet PO PRN (07:45)
[2024-01-01] MEDS ORDERED: magnesium 2GM in 50ml NS 50 ML IV PRN (07:45)
[2024-01-01] MEDS ORDERED: magnesium 4gm in 100ml NS 100 ML IV PRN (07:45)
[2024-01-01] MEDS ORDERED: potassium Cl 40MEQ/1/2NS 520ml 520 ML IV PRN (07:45)
[2024-01-01] MEDS ORDERED: potassium Cl 20 mEq SR tablet PO PRN (07:45)
[2024-01-01] MEDS: potassium Cl 20 mEq SR tablet PO PRN (07:52)
[2024-01-01] MEDS: K and/or MAG REPLACEMENT MC SCH (08:00)
[2024-01-01] MEDS: methylPREDNISolone sod succ/PF 40mg inj. IV SCH (17:47)
[2024-01-01] MEDS: albuterol 2.5 MG/3 ML nebule NEB SCH (19:16)
[2024-01-02] VITALS (7 sets, daily range): BP systolic 131–147; BP diastolic 83–96; PULSE 71–90; RESP 15–20; TEMP 97.4; O2SAT 88–95
[2024-01-02 06:22] LABS: ALBUMIN 3.4 G/DL (3.4-5.0); ANION GAP 9 (8-16); BLOOD UREA NITROGEN 16 MG/DL (7-18); BUN/CREATININE RATIO 15.4 (10.0-20.0); CALCIUM 8.6 MG/DL (8.5-10.1); CHLORIDE 99 MMOL/L (99-107); CREATININE 1.04 MG/DL (0.40-0.90); GLUCOSE 144 MG/DL (70-104); MAGNESIUM 2.3 MG/DL (1.5-2.4); PHOSPHORUS 4.4 MG/DL (2.3-4.5); POTASSIUM 3.2 MMOL/L (3.5-5.1); SODIUM 140 MMOL/L (135-145); TOTAL CARBON DIOXIDE 31.9 MMOL/L (24-32); eCRCL 44 ML/MIN; eGFR 54 ML/MIN
[2024-01-02 06:31] LABS: BASOPHILS % (AUTO) 0.1 % (0-1); EOSINOPHILS % (AUTO) 0 % (0-6); HEMATOCRIT 41.7 % (35.0-45.0); HEMOGLOBIN 13.9 g/dl (12.0-16.0); LYMPHOCYTES # (AUTO) 1.6 X10'3 (1.1-4.8); LYMPHOCYTES % (AUTO) 12.6 % (21-51); MEAN CORPUSCULAR HEMOGLOBIN 30.5 PG (27.0-31.0); MEAN CORPUSCULAR HGB CONC 33.3 g/dL (33.0-36.5); MEAN CORPUSCULAR VOLUME 91.6 FL (78-98); MEAN PLATELET VOLUME 8.1 FL (7.4-10.4); MONOCYTES # (AUTO) 0.6 X10'3 (0-0.9); MONOCYTES % (AUTO) 4.4 % (2-12); NEUTROPHILS # (AUTO) 10.6 X10'3 (1.8-7.7); NEUTROPHILS % (AUTO) 82.9 % (42-75); PLATELET COUNT 293 X10'3 (140-440); RED BLOOD COUNT 4.56 X10'6 (4.20-5.60); RED CELL DISTRIBUTION WIDTH 14.3 % (11.5-14.5); WHITE BLOOD COUNT 12.7 X10'3 (4.5-11.0)
[2024-01-02 07:09] LABS: TOTAL CELLS COUNTED 100
[2024-01-02 07:10] LABS: STOMATOCYTES 1+
[2024-01-02 07:12] LABS: PLATELET ESTIMATE NORMAL; TEAR DROP CELLS FEW
[2024-01-02] MEDS ORDERED: FLUT1DIS4 INH (12:15)
[2024-01-02] MEDS ORDERED: ALBU8HFA INH (12:15)
[2024-01-02] MEDS ORDERED: POTA-206 PO (12:59)
[2024-01-02] MEDS ORDERED: CHLO25TA10 PO (12:59)
[2024-01-02] MEDS ORDERED: BENZ-38 PO (12:59)
[2024-01-02] MEDS ORDERED: PRED10TA23 PO (12:59)
[2024-01-02] MEDS: potassium Cl 20 mEq SR tablet PO ONE (13:08)
[2024-01-02] MEDS ORDERED: lactose-reduced food (Ensure Enlive) - 237ml bottle PO SCH (17:00)
== END 2024-01-02 14:15 | disposition home or self-care (01) | DRG 871 ==
LOC: ER 10:49 → ED HOLD 14:51 → ORTHO 4S 21:33
PROVIDERS: ADMIT Family Medicine; ATTEND Family Medicine
DX: A41.9 Sepsis, unspecified organism (principal); J18.9 Pneumonia, unspecified organism; J96.01 Acute respiratory failure with hypoxia; J44.0 Chronic obstructive pulmonary disease with (acute) lower respiratory infection; J44.1 Chronic obstructive pulmonary disease with (acute) exacerbation; Z20.822 Contact with and (suspected) exposure to COVID-19; J40 Bronchitis, not specified as acute or chronic; E03.9 Hypothyroidism, unspecified; G43.909 Migraine, unspecified, not intractable, without status migrainosus; F41.9 Anxiety disorder, unspecified; I10 Essential (primary) hypertension; G89.29 Other chronic pain; Z88.8 Allergy status to other drugs, medicaments and biological substances; Z88.6 Allergy status to analgesic agent; Z88.1 Allergy status to other antibiotic agents; Z91.040 Latex allergy status
CPT/HCPCS: 36415; 71045; 71250; 80048; 81003; 83605; 83735; 83880; 84100; 84145; 84484; 85007; 85025; 85379; 85610; 85730; 87040; 87070; 87081; 87502; 87503; 87811; 93005; 93306; 94640; 94664; 94668; 94760; 96365; 96367; 97161; 97530; 99285; A4615; G0378; J0360; J0456; J0696; J1100; J1170; J1644; J2543; J2919; J7030; J7040

== ENCOUNTER 2025-02-14 23:43 | Inpatient (IN) | payer MEDICARE, BC ==
[~2025-02-14] VITALS: Ht 157.5 cm; Wt 77.1 kg
[~2025-02-14 23:43] MED LIST changes: -ALBU6.7H14 INH; +CHLO25TA10 PO; -FLUT1BLS4 INH; +FLUT1DIS4 INH; +LORA-269 PO; +OXYC1TAB17 PO; +POTA-206 PO; -ROSU5TAB12 PO; +ROSU5TAB51 PO; -THY60T PO; +THYR30TA2 PO
[2025-02-15] VITALS (8 sets, daily range): BP systolic 114–124; BP diastolic 62–82; PULSE 57–102; RESP 16; TEMP 97.3–98.4; O2SAT 94–97
--- NOTE | 2025-02-15 00:16 | Physician Documentation ---
History of Present Illness ~ Chief Complaint: Hand pain Stated Complaint: HAND PAIN Time Seen by MD: 00:04 Primary Medical Doctor: Amrik' office HPI This is a very pleasant 65-year-old female who comes in for evaluation of hand pain starting this morning. No obvious trigger provocation. However, she does report that she did 30 minutes of crocheting two days ago. She states that her thenar eminence of the right hand is exquisitely tender, worse with range of motion. Describes pain as burning and radiating up the arm. Never experienced anything like that. Did attempt to treat it by taking Percocet without any success. She takes Eliquis. Denies any other symptoms. No concern for tobacco, alcohol or illicit substances use Tetanus within 5 years: No (UNKNOWN) Medication Reconciliation Allergies: Coded Allergies: Nitrofurantoin Macrocrystal (Verified Allergy, Intermediate, 02/14/25) clindamycin (Verified Allergy, Unknown, 02/14/25) latex (Verified Allergy, Unknown, 02/14/25) nitrofurantoin (Verified Allergy, Unknown, 02/14/25) Uncoded Allergies: FOAM TAPE (Allergy, Unknown, 03/20/21) Scheduled Amlodipine Besylate (Amlodipine Besylate), 1 TAB PO DAILY, (Reported) Chlorthalidone (Chlorthalidone), 1 TAB PO DAILY Estradiol* (Estrace*), 2 TAB PO DAILY, (Reported) Fluticasone/Salmeterol (Advair 250-50 Diskus), 1 PUFFS INH Q12H Metoprolol Succinate* (Toprol Xl*), 1 TAB PO DAILY, (Reported) Montelukast Sodium (Montelukast Sodium), 1 TAB PO DAILY, (Reported) Omeprazole (Prilosec), 1 CAP PO DAILY, (Reported) Potassium Chloride (K-Dur), 20 MEQ PO DAILY Rosuvastatin Calcium (Rosuvastatin Calcium), 1 TAB PO DAILY, (Reported) Thyroid (Thyroid, [place]), 1 TAB PO QAM, (Reported) Venlafaxine Hcl (Venlafaxine Hcl Er), 1 CAP PO DAILY, (Reported) Scheduled PRN Lorazepam (Ativan), 1 PO Q12H PRN for for anxiety/agitation, (Reported) Oxycodone Hcl/Acetaminophen (Oxycodone-Acetaminophen 10-325), 1 TAB PO QID PRN for pain, (Reported) Past Medical History Past Medical History: Hypertension, Asthma, Hypothyroidism, Chronic Pain Past Surgical History: orthopedic surgeries Patient History: Patient reports no known family medical history. Alcohol Use: Rarely Drug Use: none Lives with: Spouse Lives In: Home Review of Systems ROS 10 point review of systems was performed and unless noted above in HPI is negative for acute process/complaint. Physical Exam Vital Signs: Temperature: 96.8, Source: Temporal, Heart Rate: 86, Respiratory Rate: 15, BP: 148/65, Pulse Oximetry: 95, Weight: 77.140 Physical Exam Physical examination: GENERAL: Awake, alert, oriented, GCS 15, no apparent distress, non-toxic appearing, answers questions, follows commands appropriately. Examined in bed 13., accompanied by HEENT: Atraumatic, normocephalic, pupils equal, extraocular muscles intact Active gross movements, sclerae anicteric, mucus membranes moist, no stridor. NECK: Midline, no JVD CARDIOVASCULAR: Good skin perfusion without evidence of pallor, mottling. PULMONARY: Nonlabored, symmetric chest rise, no audible wheezing, no accessory muscle use, no respiratory distress, speaking in full sentences. GASTROINTESTINAL: Not distended. NEUROLOGIC: Lucid with normal mental status. Normal facial symmetry. Moves all extremities symmetrically and with purpose. No truncal ataxia. Speech is fluid without evidence of dysarthria or aphasia, no focal deficits appreciated. EXTREMITIES: Acute deformities Skin: warm, dry PSYCHIATRIC: Normal affect, normal insight, normal concentration. Focused exam: There is no evidence of traumatic injury to the right hand. Her thenar eminence is compressible, not taut, exquisitely tender. Range of motion of the thumb is limited by pain. Range of motion of fingers two through five preserved. She does report decreased sensation to light touch in the digit, however feels pressure and pain. 2+ ulnar and radial pulses. Range of motion of the wrist is not affected. No bruising. Progress Results/Orders Results/Orders Orders - CALVIN MUNOZ DO Blood Transfusion Service (02/15/25 ) Ct Upper Extremities (02/15/25 00:40) Potassium Cl 10meq/100ml Bag (Potassium (02/15/25 01:05) Ringers Solution, Lacted (Lactated Ringe (02/15/25 01:35) Page Hospitalist (02/15/25 04:26) Fill Out Med Reconciliation (02/15/25 04:26) Completed Orders - CALVIN MUNOZ DO Morphine 4mg/Ml Inj. (Morphine Inj.) (02/15/25 00:05) Ondansetron Inj. (Zofran 4mg/2ml Vial) (02/15/25 00:05) Gabapentin Capsule (Neurontin Capsule) (02/15/25 00:05) Ct Upper Extremities (02/15/25 00:40) Cbc/Diff (02/15/25 00:05) CK (02/15/25 00:05) ESR (02/15/25 00:05) C-Reactive Protein (02/15/25 00:05) CMP (02/15/25 00:05) Iohexol 300mg/Ml 100ml Inj. (Omnipaque-3 (02/15/25 00:24) Magnesium Sulf-Water 2g/50ml (Magnesium (02/15/25 01:05) Hydromorphone 1 Mg/Ml/Pf (Dilaudid Inj.) (02/15/25 02:10) Potassium Cl Sr Tablet (K-Dur Tablet) (02/15/25 04:00) Medications Received in ER Medications (Trade) Dose Ordered Sig/Salo Route PRN Reason Start Time Stop Time Status Last Admin Dose Admin (morphine inj.) 4 mg ONCE ONCE IV 02/15/25 00:05 02/15/25 00:08 DC 02/15/25 00:35 4 MG (Zofran 4mg/2ml vial) 4 mg ONCE ONCE IV 02/15/25 00:05 02/15/25 00:08 DC 02/15/25 00:33 4 MG (Neurontin capsule) 300 mg ONCE ONCE PO 02/15/25 00:05 02/15/25 00:08 DC 02/15/25 00:38 300 MG Magnesium Sulfate 50 ml @ 100 mls/hr ONCE ONCE IV 02/15/25 01:05 02/15/25 01:34 DC 02/15/25 01:54 100 MLS/HR Potassium Chloride 100 ml @ 100 mls/hr Q1H IV 02/15/25 01:05 02/15/25 11:04 02/15/25 02:49 100 MLS/HR Lactated Ringer's 1,000 ml @ 50 mls/hr Q20H IV 02/15/25 01:35 02/15/25 01:54 50 MLS/HR (Dilaudid inj.) 1 mg ONCE ONCE IV 02/15/25 02:10 02/15/25 02:11 DC 02/15/25 02:42 1 MG (K-DUR tablet) 40 meq ONCE ONCE PO 02/15/25 04:00 02/15/25 04:01 DC 02/15/25 03:55 40 MEQ Vital Signs 02/14/25 02/15/25 02/15/25 02/15/25 23:46 00:26 00:35 01:26 Temp 96.8 96.8 96.8 Pulse 86 73 70 Resp 15 10 16 10 B/P (MAP) 148/65 114/69 (84) 114/69 (84) Pulse Ox 95 96 95 02/15/25 02/15/25 02/15/25 02/15/25 01:58 02:01 02:42 02:52 Temp 96.8 Pulse 73 Resp 10 11 16 16 B/P (MAP) 120/84 (96) Pulse Ox 97 02/15/25 02/15/25 03:14 04:16 Temp 96.8 Pulse 60 56 Resp 12 12 B/P (MAP) 115/68 (84) 118/68 (85) Pulse Ox 95 98 O2 Flow Rate 2.0 2.0 Laboratory Tests Test 02/15/25 00:13 White Blood Count 10.7 Red Blood Count 4.34 Hemoglobin 13.3 Hematocrit 38.9 Mean Corpuscular Volume 89.6 Mean Corpuscular Hemoglobin 30.7 Mean Corpuscular Hemoglobin Concent 34.2 Red Cell Distribution Width 13.3 Platelet Count 297 Mean Platelet Volume 8.3 Neutrophils (%) (Auto) 59.0 Lymphocytes (%) (Auto) 27.3 Monocytes (%) (Auto) 7.7 Eosinophils (%) (Auto) 5.2 Basophils (%) (Auto) 0.8 Neutrophils # (Auto) 6.3 Lymphocytes # (Auto) 2.9 Monocytes # (Auto) 0.8 Eosinophils # (Auto) 0.6 Basophils # (Auto) 0.1 CBC Comment Erythrocyte Sedimentation Rate 22 Sodium Level 137 Potassium Level 2.5 *L Chloride Level 99 Carbon Dioxide Level 35.6 H Anion Gap 2 L Blood Urea Nitrogen 15 Creatinine 1.11 H Estimated GFR/1.73 m2 49 BUN/Creatinine Ratio 13.5 Glucose Level 103 Calcium Level 8.1 L Total Bilirubin 0.6 Aspartate Amino Transf (AST/SGOT) 21 Alanine Aminotransferase (ALT/SGPT) 18 Alkaline Phosphatase 95 Total Creatine Kinase 79 C-Reactive Protein 0.66 H Total Protein 7.3 Albumin 3.4 Globulin 3.9 Albumin/Globulin Ratio 0.9 L Chemistry Comments Medical Decision Making Findings Facility Status: ED Holds, E process The plan was discussed with the patient, who demonstrates clear understanding of the plan and is in agreement with the plan unless otherwise noted in the chart. All questions have been answered, all concerns were addressed unless otherwise documented. I was available throughout their ED stay for frequent reassessment and questions. Differential Diagnoses (considered and possible or likely): [New onset neuropathic pain, tendinitis, muscle rupture with the intramuscular hematoma, arthritis including hemarthrosis, unlikely to be septic joint as there is no calor, no erythema, unlikely vascular injury, exam was not consistent with a compartment syndrome, unlikely to represent a neck injury or brachial plexus injury given it is very localized nature] ??Differential Diagnoses (considered and unlikely, not requiring evaluation currently): [See above] MDM Data Please see [facility] for the following: Independent Historians and external Records Review. Historian: [Patient] Independent Historians: ?[Spouse] Medication Management: [Reviewed medication list] Social History and determinants: [Reviewed] Please see the body of the note for the following: Any independent interpretations of ECG, imaging studies. All vitals signs/haemodynamics, ordered tests were independently reviewed and interpreted by myself. Nursing triage complaint and vitals reviewed, additional nursing notes were reviewed as available and I agree unless otherwise noted or documented in contradiction in the chart Vital Signs: Independently reviewed Labs: Independently interpreted Imaging: Independently interpreted Old Medical Records: Independently reviewed, see [facility] for relevant summary and information Pulse Oximetry: [99%] interpreted as [normal on room air] by me [Switch Box Installer: [Regular Rate, Regular rhythm, no ectopy, NSR] reviewed and interpreted by me] Additionally notably showing: [Hemodynamically stable. Laboratory workup notable for severe hypokalemia of 2.5. Potassium repletion was initiated. Magnesium was supplemented. Advanced imaging of the hand noticed severe osteoarthritis and soft tissue swelling, nonspecific. CT read suggested cellulitis, however the patient does not have a white count, does not have a neutrophilic predominance. CRP however is mildly elevated.] Tests considered but not ordered include: [MRI hand if pain persists can be done on an inpatient basis] Social Determinants of Health Impact: Patient was evaluated in [facility] [place] to healthcare due to below par ratio of patient to medical providers. [] Comorbid Conditions Impacting Present Evaluation and Care/Treatment: [See list] Management Discussions with other Healthcare Providers: [Hospitalist regarding admission] Treatment and Disposition Medication Management (Given or considered): []. See EMR for details Consideration for Hospitalization/Escalation/Deescalation of Care: Admission for observation has been considered, and appears to be necessary for correction of her hypokalemia and further investigation of her hand pain. ?ED Course:?[No clinical deterioration, however no significant pain improvement either.] ?Shared decision making:?[] Code status:?FULL Please see the full Electronic Medical Record for full details of nursing documentation, medications list, other records of complete past medical history and conditions, vital signs, laboratory studies, and any radiologic study interpretations by radiologists. Portions of this note were completed using [employer] dictation software and as a result there may exist minor errors in spelling. I have reviewed elements of past family and social history and agree as included in note. Departure Disposition: ADMITTED INPATIENT Admitted to Inpatient Unit: to hospitalist Impression: Primary Impression: Hypokalemia Additional Impression: Hand pain Condition: Stable Referrals: NO PRIMARY CARE PROVIDER (PCP) Critical Care Note Critical Care Note CRITICAL CARE TIME: [ 35] minutes Treatments/Evaluations: Close monitoring and treatment of unstable vital signs, cardiorespiratory, and neurologic status, while maintaining tight balance of fluid, respiratory, and cardiac interventions. This time includes discussing the case with the patient and the patients family. This time does not include all procedures stated elsewhere in this record. This time also includes reviewing old records, labs and radiological studies. This time includes examining and re-examining the patient. Additionally, this time also includes arranging care with admitting and consulting physicians. Signature Scribe Signature: No scribe Attestation: This note accurately reflects clinical decisions, work performed by myself, Calvin Munoz, CALVIN KASPER DO Feb 15, 2025 00:15
[2025-02-15 00:19] LABS: MEAN PLATELET VOLUME 8.3 FL (7.4-10.4); RED CELL DISTRIBUTION WIDTH 13.3 % (11.5-14.5)
[2025-02-15] MEDS ORDERED: iohexol 300mg/ml 100ml inj. ONE (00:24)
[2025-02-15] MEDS: ondansetron/PF 4mg/2ml inj IV ONE (00:33)
[2025-02-15] MEDS: morphine 4 MG/ML inj SYRINge IV ONE (00:35)
[2025-02-15 00:43] LABS: CREATININE 1.11 MG/DL (0.40-0.90); TOTAL CARBON DIOXIDE 35.6 MMOL/L (24-32); eCRCL 40 ML/MIN; eGFR 49 ML/MIN
[2025-02-15] MEDS: potassium CL 10mEq/100ml bag 100 ML IV SCH (01:54)
[2025-02-15] MEDS: ringers solution, lacted 1,000 ML IV SCH (01:54)
[2025-02-15] MEDS: magnesium sulf-water 2g/50mL 50 ML IV ONE (01:54)
[2025-02-15] MEDS: potassium Cl 20 mEq SR tablet PO ONE (03:55)
--- NOTE | 2025-02-15 04:08 | RADIOLOGY REPORT ---
INDICATION: severe pain and swelling of thenar eminence, on thinners COMPARISON: None TECHNIQUE: CT of the right was performed with 100 mL Omnipaque 300 contrast. Coronal and sagittal r eformatted images are provided. CONTRAST: None Radiation Dose Information: CTDI volume is 3.0 mGy. Dose-length product is 84.4 mGy*cm FINDINGS: There is no evidence of acute fracture. No dislocation. Severe 1st metacarpal and triscaphe joint s pace narrowing with osteophyte formation. Joint spaces are otherwise maintained. There is soft tissu e swelling in the thenar eminence. No fluid collection. IMPRESSION: 1. Soft tissue swelling of the thenar eminence, nonspecific. Findings could represent cellulitis. No fluid collection. 2. Severe 1st carpometacarpal and triscaphe joint osteoarthrosis. 3. No CT evidence of osteomyelitis. All CT scans at this medical facility are performed using dose modulation techniques as appropriate t o a performed exam including the following: Automated exposure control was utilized; adjustment of th e MA and/or KV according to patient size; and use of iterative reconstruction technique.
[2025-02-15] MEDS ORDERED: albuterol 2.5 MG/3 ML nebule NEB PRN (05:10)
[2025-02-15] MEDS ORDERED: potassium Cl 40MEQ/1/2NS 520ml 520 ML IV PRN (05:10)
[2025-02-15] MEDS ORDERED: HYDROcodone/acetaminophen 5mg/325mg tablet PO PRN (05:10)
[2025-02-15] MEDS ORDERED: mag hydrox/Alum hydrox/simeth 30ml oral suspension PO PRN (05:10)
[2025-02-15] MEDS ORDERED: magnesium hydroxide 30ml (MOM) UD suspension PO PRN (05:10)
[2025-02-15] MEDS ORDERED: magnesium Cl slow-release 64mg tablet PO PRN (05:10)
[2025-02-15] MEDS ORDERED: magnesium sulf-water 4G/100mL 100 ML IV PRN (05:10)
[2025-02-15] MEDS ORDERED: magnesium sulf-water 2g/50mL 50 ML IV PRN (05:10)
[2025-02-15] MEDS ORDERED: ondansetron/PF 4mg/2ml inj IV PRN (05:10)
--- NOTE | 2025-02-15 05:27 | HISTORY AND PHYSICAL-Residence ---
History & Physical Providers to CC Resident Creating Document: TORI ONEAL RES ~ History of Present Illness Primary Medical Doctor: Amrik' office Reason for Admit\Complaint: Right hand cellulitis; severe hypokalemia History of Present Illness This is a 65-year-old female patient with a past medical history of chronic hypoxemic respiratory failure, hypertension, hypothyroidism, chronic back pain, atrial fibrillation, hyperlipidemia, depression, presented to the emergency department after sudden and intense pain in the right hand. She woke up with sudden right hand pain and edema more intense in the hypothenar region, does not remember any recent trauma. There is no calor or rubor. The pain radiates up to the right shoulder and did not improve with Percocet. She was also found to have severe hypokalemia. The main reason for her admission was intense and excruciating pain in the right hand not responsive to oral and IV opioids. She denies fever, nausea or any systemic symptoms. Allergies: Coded Allergies: Nitrofurantoin Macrocrystal (Verified Allergy, Intermediate, 02/14/25) clindamycin (Verified Allergy, Unknown, 02/14/25) latex (Verified Allergy, Unknown, 02/14/25) nitrofurantoin (Verified Allergy, Unknown, 02/14/25) Uncoded Allergies: FOAM TAPE (Allergy, Unknown, 03/20/21) Home Medications Home Medications Active K-Dur (Potassium Chloride) 10 Meq Tab.prt.sr 20 Meq PO DAILY Chlorthalidone 25 Mg Tablet 1 Tab PO DAILY 30 Days Advair 250-50 Diskus (Salmeterol Xinafoate/Fluticasone) 1 Each Disk.w.dev 1 Puffs INH Q12H 30 Days Reported Oxycodone-Acetaminophen 10-325 (Oxycodone Hcl/Acetaminophen) 10 Mg-325 Mg Tablet 1 Tab PO QID PRN Ativan (Lorazepam) 1 Mg Tablet 1 PO Q12H PRN MDD 2 Thyroid, [place] (Thyroid) 30 Mg Tablet 1 Tab PO QAM Montelukast Sodium 10 Mg Tablet 1 Tab PO DAILY Venlafaxine Hcl Er (Venlafaxine Hcl) 150 Mg Cap.sr.24h 1 Cap PO DAILY Amlodipine Besylate 10 Mg Tablet 1 Tab PO DAILY Rosuvastatin Calcium 5 Mg Tablet 1 Tab PO DAILY Prilosec (Omeprazole) 40 Mg Capsule 1 Cap PO DAILY Estrace* (Estradiol) 1 Mg Tablet 2 Tab PO DAILY Toprol Xl* (Metoprolol Succinate) 50 Mg Tab.sr.24h 1 Tab PO DAILY 30 Days Past Medical History Past Medical History Chronic respiratory failure Hypertension Hypothyroidism Chronic back pain Atrial fibrillation Hyperlipidemia Depression Past Surgical History Surgical History Comment Appendectomy 1969 2 C-sections Hysterectomy 2002 Cholecystectomy 2001 Right wrist carpal tunnel 2006 Left wrist carpal tunnel 2021 Multiple spine surgeries Family History Family History: Patient reports no known family medical history. Past Social History Smoking: Non-Smoker Alcohol Use: Rarely Drug Use: None Lives with: Spouse Lives In: Home ROS Constitutional: Reports: no symptoms reported Eyes: Reports: no symptoms reported ENT: Reports: no symptoms reported Respiratory: Reports: no symptoms reported Cardiovascular: Reports: no symptoms reported Gastrointestinal: Reports: no symptoms reported Genitourinary: Reports: no symptoms reported Female Genitalia: Reports: no reported symptoms Neurological: Reports: no symptoms reported Musculoskeletal: Reports: see HPI, pain, swelling Integumentary: Reports: no symptoms reported Allergic/Immunologic: Reports: no symptoms reported Hematologic/Lymphatic: Reports: no symptoms reported Endocrine: Reports: no symptoms reported Psychiatric: Reports: no symptoms reported Exam Vitals: Vital Signs Date Time Temp Pulse Resp B/P (MAP) Pulse Ox O2 Delivery O2 Flow Rate FiO2 02/15/25 04:51 02/15/25 04:50 70 14 98 02/15/25 04:16 96.8 2.0 General: General: Awake and Alert, no acute distress. HEENT: Conjunctiva pink, Sclera clear, Mucus Membranes moist. Neck: Supple without masses and tenderness. Resp: Unlabored. Lungs clear to auscultation bilaterally. Heart: Regular Rate and rhythm, normal S1 and S2 without murmur, rub or gallop. Abdomen: Soft and non tender no organomegaly Extremities: Trace edema in the right hypothenar region. Allodynia is present. Intense pain noted with palpation. Skin: Warm and Dry. Diagnostic Data Last Recorded Lab Results: 02/15/25 0013 02/15/25 0013 Advance Care Planning Advanced Care plannin - 30 Minutes (The patient wishes to be full code) Additional Plan Assessment This is a 65-year-old female patient with a past medical history of chronic hypoxemic respiratory failure, hypertension, hypothyroidism, chronic back pain, atrial fibrillation, hyperlipidemia, depression, presented to the emergency department after sudden and intense pain in the right hand. CT showed signs of cellulitis and the patient also was found to have severe hypokalemia. The patient was admitted as a consequence of the intense and excruciating pain in the right hand not responsive to oral and IV opioids. Plan Right hand cellulitis - associated with intense pain, not responsive to p.o. medication Possibly component of musculoskeletal pain No signs of sepsis ESR 22, C-reactive protein 0.66 CT:Soft tissue swelling of the thenar eminence, nonspecific. Findings could represent cellulitis. No fluid collection. Severe 1st carpometacarpal and triscaphe joint osteoarthrosis. No CT evidence of osteomyelitis. Started on cefazolin 2g q8h Naproxen 500 mg once Morphine/Murray p.r.n. Consider orthopedic evaluation if pain persists after initial measures Severe hypokalemia - most likely related to furosemide Potassium 2.5 Replacement per protocol Chronic kidney disease - stage IIIA Creatinine 1.11 (basal 1.04), GFR 55 (CKD-EPI) Monitor daily Chronic respiratory failure, not on acute exacerbation: Continue night oxygen. Albuterol p.r.n.. Hypertension: Continue home medication after med reconciliation Hypothyroidism: Ordered TSH. Continue home medication after med reconciliation Atrial fibrillation: Continue Eliquis and metoprolol after med reconciliation. Hyperlipidemia: Ordered lipid panel. Continue home medication after med reconciliation Code Status: Full code DVT prophylaxis: Eliquis Analgesia/sedation: Morphine/Murray Line/tube: PIV GI prophylaxis: None Nutrition: Regular diet Prognosis: Guarded Disposition: Continue medical treatment. Pending med reconciliation. Date of Service: Feb 15, 2025 Billing Provider: JOSE MANUEL CHOWDHURY MD, LUCAS, RES Feb 15, 2025 05:27
[2025-02-15 06:33] LABS: CREATININE 1.03 MG/DL (0.40-0.90); TOTAL CARBON DIOXIDE 32.6 MMOL/L (24-32); eCRCL 43 ML/MIN; eGFR 54 ML/MIN
[2025-02-15 06:41] LABS: CHOL/HDL RATIO 2.7 (0.00-4.99); LDL CHOLESTEROL 57 MG/DL (50-100)
[2025-02-15] MEDS: ceFAZolin 2gm/dext,iso 50mL 50 ML IV SCH (07:21)
[2025-02-15] MEDS: K and/or MAG REPLACEMENT MC SCH (07:40)
[2025-02-15] MEDS: potassium Cl 20 mEq SR tablet PO PRN (07:42)
[2025-02-15] MEDS: HYDROcodone/acetaminophen 10/325mg tab PO PRN (07:44)
[2025-02-15] MEDS: docusate sod 100mg capsule PO SCH (08:00)
[2025-02-15] MEDS ORDERED: enoxaparin 40mg/0.4ml syringe SUBCUT SCH (08:00)
[2025-02-15] MEDS ORDERED: BUDE10.7 INH (08:27)
[2025-02-15] MEDS ORDERED: DUPI200P SQ (08:27)
[2025-02-15] MEDS ORDERED: APIX5TAB3 PO (08:27)
[2025-02-15] MEDS ORDERED: ALB0.5UD IH (08:27)
[2025-02-15] MEDS: DICLOFENAC SODIUM 1% gel 1 50GM tube TP SCH (09:40)
--- NOTE | 2025-02-15 10:03 | PROGRESS NOTE ---
Clinical Note Clinical Note Progress Note: The patient informs me that she woke up with swelling of her right hand by her thumb she has had pain previously and has severe osteoarthritis on CT scan of the 1st carpal metacarpal joint- There is significant swelling of her hand and wrist around the thumb region and significant tenderness to palpation at the base of the thumb. There is no rubor and that has no other signs of infection the patient has a normal white blood cell count as well and a lactic acid is 1.2. The patient also has a normal sed rates. See appearance is consistent more with a strain or sprain the patient has a severe pain in the area- I have ordered a one time dose of Solu-Medrol 125 mg IV- the patient has IV cefazolin ordered which I am going to discontinue as this does not appear to be in infectious process. Voltaren gel b.i.d. to the region I have informed the nurse to give the patient an ice pack for the swelling I have ordered an MRI as well of the right upper extremity. The patient also has significant hypokalemia which is improving her initial episode on potassium was 2.5 now 3.1- remains on potassium replacement protocol. Visit Coding Cardiology Date of Service: Feb 15, 2025 Billing Provider: RADHA VACA DO Cardiology Evaluation and Barb: NOT BILLABLE (Admitted after midnight to be billed by edson) RADHA VACA DO Feb 15, 2025 10:03
[2025-02-15] MEDS ORDERED: EZET10TA48 PO (11:18)
[2025-02-15] MEDS ORDERED: SOTA80TA46 PO (11:18)
[2025-02-15] MEDS ORDERED: CETI10TA14 PO (11:18)
[2025-02-15] MEDS ORDERED: SOTA80TA73 PO (16:02)
[2025-02-15] MEDS: Budesonide/Glycopyr/Formoterol (Breztri Aerosphere Inhaler) IH SCH (20:00)
--- NOTE | 2025-02-15 20:00 | RADIOLOGY REPORT ---
EXAM: MR MRI UPPER EXTREMITY RIGHT INDICATION: significant tenderness of the 1st carpal phalange joing TECHNIQUE: Multisequence, multiplanar MRI of the left wrist was performed in the absence of gadoliniu m contrast material. COMPARISON: CT CT UPPER EXTREMITIES W/ IV CONTRAST on DOS: 02/15/25 FINDINGS: CARPAL TUNNEL: The traversing flexor tendons are intact. Normal thickness of the overlying flexor ret inaculum. Normal signal intensity and morphology of the median nerve. FLEXOR TENDONS: Intact without tenosynovitis. EXTENSOR TENDONS: Edema along the 2nd extensor compartment. Correlate for tenosynovitis.. TRIANGULAR FIBROCARTILAGE: Intact. EXTRINSIC/INTRINSIC LIGAMENTS: Intact. JOINTS: Small radiocarpal joint effusion. Slight distention of the pisiform recess. Severe joint spac e loss compatible with primary osteoarthrosis of the 1st carpometacarpal joint with a opposing subcho ndral cysts and possible adjacent small ganglion cysts versus joint distention from fluid. Opposing minimal osteitis of the base of the 1st metacarpal and trapezium. Degenerative change with a opposing subchondral cystic change of the 1st metacarpophalangeal joint. BONES: No MR evidence of an acute fracture. Intraosseous ganglion cysts versus subchondral cysts vers us less likely erosion of the 3rd metacarpal head.. MUSCLES: Edema along the thenar musculature, which may be reactive secondary to severe osteoarthrosis /osteo arthritis of the 1st carpometacarpal joint. NEUROVASCULAR: Normal signal intensity and morphology of the ulnar nerve at Guyon's canal. The radial neurovascular bundle is intact. OTHER: The surrounding soft tissues are unremarkable. IMPRESSION: 1. Severe osteoarthritis of the 1st carpometacarpal joint with surrounding reactive myositis along th e thenar compartment. 2. Edema along the 2nd extensor compartment. Correlate for tenosynovitis. 3. Small radiocarpal joint effusion.
[2025-02-15] MEDS: sotalol HCl 40mg (1/2 tablet) PO SCH (21:05)
[2025-02-16] VITALS (7 sets, daily range): BP systolic 104–124; BP diastolic 63–82; PULSE 65–89; RESP 14–16; TEMP 97.4–98.5; O2SAT 93–99
[2025-02-16 06:00] LABS: MEAN PLATELET VOLUME 8.5 FL (7.4-10.4); RED CELL DISTRIBUTION WIDTH 13.3 % (11.5-14.5)
[2025-02-16 06:15] LABS: CREATININE 0.92 MG/DL (0.40-0.90); TOTAL CARBON DIOXIDE 32.4 MMOL/L (24-32); eCRCL 48 ML/MIN; eGFR 61 ML/MIN
[2025-02-16] MEDS: potassium Cl 20 mEq SR tablet PO PRN (06:48)
[2025-02-16] MEDS: thyroid, pork 30mg tablet PO SCH (07:28)
[2025-02-16] MEDS: pantoprazole 40mg Tablet.DR PO SCH (07:31)
[2025-02-16] MEDS: venlafaxine XR 75mg capsule (Q24H) PO SCH (07:32)
--- NOTE | 2025-02-16 13:11 | PROGRESS NOTE ---
Daily Progress Note Providers to CC ~ Antibiotic Timeout Antibiotic Ordered?: No Subjective Patient reports feeling better Objective Vital Signs Date Time Temp Pulse Resp B/P (MAP) Pulse Ox O2 Delivery O2 Flow Rate FiO2 02/16/25 11:49 16 02/16/25 11:31 85 99 Room Air* 0 21 02/16/25 10:00 97.6 104/63 (77) Result Diagram: 02/16/25 0502/16/25 05 Gen. awake alert oriented asymptomatic HEENT: Normocephalic, atraumatic, extraocular movements are intact, sclera anicteric, conjunctiva pinkish, moist oral mucosa, no rash or ulcers. NECK: Supple, no JVD, trachea midline. CHEST: Clear to auscultation, no wheezes crackles or rhonchi. HEART: Regular rate rhythm, no murmur gallop or rub. ABDOMEN: Soft, nontender, no organomegaly. EXTREMITIES: No cyanosis clubbing or edema. NEURO EXAM: Grossly nonfocal. MUSCULOSKELETAL : No joint swelling or deformities. Noted to have right thenar eminence swelling as well as bluish discoloration. SKIN: No rash or ulcers noted. Other Results Medications reviewed Problem\Assessment\Plan 65 years old female presented to the ER for evaluation of right hand pain and swelling. 1. Arthritis/tenosynovitis: Requested ortho consultation from Dr. Gonzalez and left a message with the OR nurse who picked his phone. 2. Chronic respiratory failure: Continue supplemental oxygen 3. Hypothyroidism: Continue [place] thyroid 4. Hypertension: Continue amlodipine and Toprol-XL 5. Hyperlipidemia: Continue rosuvastatin 6. Depression: Continue venlafaxine Seven. GERD: Continue Prilosec 8. Code status: Full code 9. Hypokalemia: Replace per protocol 10. Leukocytosis: Likely due to steroid that patient received Disposition: Home if cleared by ortho. Date of Service: Feb 16, 2025 Billing Provider: KATHARINE JULIAN MD Common Visit Codes: [id number] INP/OBS CARE(HIGH) KATHARINE JULIAN MD Feb 16, 2025 13:11
--- NOTE | 2025-02-16 14:58 | CONSULTATION REPORT ---
History of Present Illness Providers to CC ~ Reason for Admit\Admit Dx: Right hand cellulitis; severe hypokalemia Refering MD: [facility] History of Present Illness 5-year-old white female who has developed right hand pain and swelling presented to the emergency room there was some concern for the potential cellulitis versus tenosynovitis with the patient was admitted placed on intravenous antibiotics and I was consulted within the past 2 hours to evaluate this patient in the meantime the patient has had significant improvement of her hand pain and swelling with a single dose of antibiotics. Patient reports a long history of pain at the base of her thumb with use of the right hand. She is also having some pain and discomfort along the extensor tendon of the 2nd and 3rd ray. Again this is resolved with rest and elevation and one dose of the antibiotics. Past medical/surgical history: As per the admitting history and physical. Examination orthopedic to the right hand. There was no significant swelling now there was no erythema was no fluctuance the patient has distinct crepitus and pain involving the 1st carpometacarpal joint consistent with severe degenerative joint disease. She has full composite flexion and extension of her fingers without hesitation there were no signs of septic tenosynovitis. MRI study was completed and reviewed I reviewed these images as well and thank concur with the findings which revealed severe degenerative joint disease of the 1st carpometacarpal joint with myositis of surrounding this 1st CMC joint consistent with a clinical picture. Mild tenosynovitis of the extensor tendon without significant fluid collection. Assessment: Severe degenerative joint disease 1st CMC joint with reactive myositis responding to conservative treatment. Tendinosis extensor tendon mild resolving. Plan: Patient may benefit from an intra-articular corticosteroid injection if her symptoms fail to adequately improve. She can follow up with me in my clinical office practice for a repeat evaluation of the next 2-3 weeks no further orthopedic intervention is recommended at this time patient is to elevate ice p.r.n. pain. Believe this patient can be discharged to home with close follow-up as discussed. Thank you for the consultation Allergies: Coded Allergies: Nitrofurantoin Macrocrystal (Verified Allergy, Intermediate, 02/14/25) clindamycin (Verified Allergy, Unknown, 02/14/25) latex (Verified Allergy, Unknown, 02/14/25) nitrofurantoin (Verified Allergy, Unknown, 02/14/25) Uncoded Allergies: FOAM TAPE (Allergy, Unknown, 03/20/21) Home Medications Home Medications Active K-Dur (Potassium Chloride) 10 Meq Tab.prt.sr 20 Meq PO DAILY Chlorthalidone 25 Mg Tablet 1 Tab PO DAILY 30 Days Reported Betapace* (Sotalol HCl) 80 Mg Tablet 0.5 Tab PO BID Cetirizine HCl 10 Mg Tablet 1 Tab PO DAILY Ezetimibe 10 Mg Tablet 1 Tab PO DAILY Proventil Nebs* (Albuterol) 2.5 Mg/0.5 Ml Vial.neb 2.5 Mg IH Q6H PRN Breztri Aerosphere Inhaler (Budesonide/Glycopyr/Formoterol) 160 Mcg-9 Mcg-4.8 Mcg/Actuation Hfa.aer.ad 2 Puffs INH Q12H 30 Days Dupixent Pen (Dupilumab) 200 Mg/1.14 Ml Pen.injctr 200 Mg SQ Q2W Eliquis (Apixaban) 5 Mg Tablet 1 Tab PO Q12H Oxycodone-Acetaminophen 10-325 (Oxycodone Hcl/Acetaminophen) 10 Mg-325 Mg Tablet 1 Tab PO QID PRN Ativan (Lorazepam) 1 Mg Tablet 1 PO Q12H PRN MDD 2 Thyroid, [place] (Thyroid) 30 Mg Tablet 45 Mcg PO QAM Montelukast Sodium 10 Mg Tablet 1 Tab PO DAILY Venlafaxine Hcl Er (Venlafaxine Hcl) 150 Mg Cap.sr.24h 1 Cap PO DAILY Amlodipine Besylate 10 Mg Tablet 1 Tab PO DAILY Rosuvastatin Calcium 5 Mg Tablet 1 Tab PO DAILY Prilosec (Omeprazole) 40 Mg Capsule 1 Cap PO BID Estrace* (Estradiol) 1 Mg Tablet 2 Tab PO DAILY Past Family History Family History: Cervical cancer FH: brain cancer FH: heart attack FH: kidney cancer Stroke (cerebrovascular) Physical Exam Last Vital Signs Recorded: Temperature: 97.6, Source: Temporal, Heart Rate: 85, Respiratory Rate: 16, BP: 104/63, Pulse Oximetry: 99, Weight: 77.140 Results Diagram Lab Result Diagram: 02/16/25 0529 02/16/25 0529 YRN FARNSWORTH MD Feb 16, 2025 14:58
[2025-02-17 02:11] VITALS: RESP 18
[2025-02-17 06:00] VITALS: BP 110/54; PULSE 56; RESP 15; TEMP 97.6; O2SAT 97
[2025-02-17 08:00] VITALS: RESP 17; O2SAT 97
[2025-02-17 08:17] LABS: MEAN PLATELET VOLUME 8.7 FL (7.4-10.4); RED CELL DISTRIBUTION WIDTH 13.7 % (11.5-14.5)
[2025-02-17 08:32] LABS: CREATININE 0.92 MG/DL (0.40-0.90); TOTAL CARBON DIOXIDE 33.5 MMOL/L (24-32); eCRCL 48 ML/MIN; eGFR 61 ML/MIN
[2025-02-17 10:00] VITALS: BP 118/76; PULSE 87; RESP 14; TEMP 97.6; O2SAT 99
[2025-02-17] MEDS ORDERED: POTA-192 PO (10:05)
[2025-02-17] MEDS ORDERED: CHLO25TA10 PO (10:05)
[2025-02-17 11:16] VITALS: PULSE 69; RESP 16; O2SAT 96
--- NOTE | 2025-02-17 12:21 | DISCHARGE SUMMARY ---
Discharge Summary Providers to ~ Discharge Summary Admission Diagnosis: Right hand cellulitis; hypokalemia Hospital Course DATE OF ADMISSION: 02/15/2025 DATE OF DISCHARGE:02/17/2025 Discharge Diagnosis\Comment: Hypokalemia Arthritis/tenosynovitis right hand Operations\Procedures: Upper extremity MRI Consultants: Ortho Dr. Gonzalez Complications: None Condition on DC: Stable Continued Medications: Albuterol Sulfate Nebs* (Proventil Nebs*) 2.5 Mg/0.5 Ml Vial.neb 2.5 MG IH Q6H PRN for SOB or wheezing, EACH Amlodipine Besylate (Amlodipine Besylate) 10 Mg Tablet 1 TAB PO DAILY Apixaban (Eliquis) 5 Mg Tablet 1 TAB PO Q12H, TAB 0 Refills Budesonide/Glycopyr/Formoterol (Breztri Aerosphere Inhaler) 160 Mcg-9 Mcg-4.8 Mcg/Actuation Hfa.aer.ad 2 PUFFS INH Q12H for 30 Days, #10.7 GM 0 Refills Cetirizine HCl (Cetirizine HCl) 10 Mg Tablet 1 TAB PO DAILY for allergy symptoms, #30 TAB 0 Refills Chlorthalidone (Chlorthalidone) 25 Mg Tablet 1 TAB PO DAILY Dupilumab (Dupixent Pen) 200 Mg/1.14 Ml Pen.injctr 200 MG SQ Q2W Estradiol* (Estrace*) 1 Mg Tablet 2 TAB PO DAILY, TAB Ezetimibe (Ezetimibe) 10 Mg Tablet 1 TAB PO DAILY, TAB 0 Refills Lorazepam (Ativan) 1 Mg Tablet 1 PO Q12H PRN for for anxiety/agitation MDD 2 Montelukast Sodium (Montelukast Sodium) 10 Mg Tablet 1 TAB PO DAILY Omeprazole (Prilosec) 40 Mg Capsule 1 CAP PO BID Oxycodone Hcl/Acetaminophen (Oxycodone-Acetaminophen 10-325) 10 Mg-325 Mg Tablet 1 TAB PO QID PRN for pain Potassium Chloride (Klor-Con) 10 Meq Tab.prt.sr 2 TAB PO DAILY Rosuvastatin Calcium (Rosuvastatin Calcium) 5 Mg Tablet 1 TAB PO DAILY Sotalol Hcl* (Betapace*) 80 Mg Tablet 0.5 TAB PO BID for afib Thyroid (Thyroid, [place]) 30 Mg Tablet 45 MCG PO QAM Venlafaxine Hcl (Venlafaxine Hcl Er) 150 Mg Cap.sr.24h 1 CAP PO DAILY Discharge Summary: 65 years old female presented to the ER for evaluation of right hand pain and swelling. 1. Arthritis/tenosynovitis: MRI showed severe osteoarthritis of the 1st carpometacarpal joint with surrounding reactive myositis along the thenar compartment.Edema along the 2nd extensor compartment. Ortho was consulted and Dr. Gonzalez evaluated the patient. He recommended conservative treatment. Patient may benefit from intra-articular corticosteroid injection if symptoms fail to improve. Patient is advised to follow up with his clinic in the next 2- 3 weeks. In the meantime patient has been advised to elevate and use ice p.r.n.. 2. Chronic respiratory failure: Continue supplemental oxygen 3. Hypothyroidism: Continued [place] thyroid 4. Hypertension: Continued amlodipine and Toprol-XL 5. Hyperlipidemia: Continued rosuvastatin 6. Depression: Continued venlafaxine Seven. GERD: Continued Prilosec 8. Code status: Patient was kept as a full code 9. Hypokalemia: Replaced per protocol. Likely due to chlorthalidone. Patient is advised to follow up with her PCP to adjust her medications. 10. Leukocytosis: Likely due to steroid that patient received Discharge exam: Examined the patient on the day of discharge. She reports improvement of pain and swelling of her right hand. Gen. awake alert oriented asymptomatic HEENT: Normocephalic, atraumatic, extraocular movements are intact, sclera anicteric, conjunctiva pinkish, moist oral mucosa, no rash or ulcers. NECK: Supple, no JVD, trachea midline. CHEST: Clear to auscultation, no wheezes crackles or rhonchi. HEART: Regular rate rhythm, no murmur gallop or rub. ABDOMEN: Soft, nontender, no organomegaly. EXTREMITIES: No cyanosis clubbing or edema. NEURO EXAM: Grossly nonfocal. MUSCULOSKELETAL : No joint swelling or deformities. Noted to have right thenar eminence swelling as well as bluish discoloration. SKIN: No rash or ulcers noted. Disposition Home *Problems/Diagnosis: (1) Hypokalemia Status: Acute (2) Hand pain Status: Acute Total Time Spent on D/C: > 30 Minutes Date of Service: Feb 17, 2025 Billing Provider: KATHARINE JULIAN MD Common Visit Codes: 52036-FNT/OBS DISCH DAY >30min KATHARINE JULIAN MD Feb 17, 2025 12:19
== END 2025-02-17 13:15 | disposition home or self-care (01) | DRG 558 ==
LOC: ER 23:44 → ED HOLD 02-15 05:15 → EDBEDREQTM 02-15 10:37 → ORTHO 4S 02-15 11:23
PROVIDERS: ADMIT Surgery Surgical Critical Care; ATTEND Family Medicine
DX: M65.941 Unspecified synovitis and tenosynovitis, right hand (principal); J96.10 Chronic respiratory failure, unspecified whether with hypoxia or hypercapnia; M60.841 Other myositis, right hand; M18.11 Unilateral primary osteoarthritis of first carpometacarpal joint, right hand; E03.9 Hypothyroidism, unspecified; K21.9 Gastro-esophageal reflux disease without esophagitis; E78.5 Hyperlipidemia, unspecified; I12.9 Hypertensive chronic kidney disease with stage 1 through stage 4 chronic kidney disease, or unspecified chronic kidney disease; N18.31 Chronic kidney disease, stage 3a; D72.829 Elevated white blood cell count, unspecified; T38.0X5A Adverse effect of glucocorticoids and synthetic analogues, initial encounter; J45.909 Unspecified asthma, uncomplicated; E87.6 Hypokalemia; F32.A Depression, unspecified; I48.91 Unspecified atrial fibrillation; Z88.8 Allergy status to other drugs, medicaments and biological substances; Z91.040 Latex allergy status; Z79.899 Other long term (current) drug therapy; Z80.49 Family history of malignant neoplasm of other genital organs; Z80.51 Family history of malignant neoplasm of kidney; Z90.710 Acquired absence of both cervix and uterus; Z98.891 History of uterine scar from previous surgery; Y92.89 Other specified places as the place of occurrence of the external cause
CPT/HCPCS: 36415; 73201; 73218; 80053; 80061; 82550; 83605; 83735; 84132; 84443; 85025; 85651; 86140; 87081; 94760; 96365; 96375; 99291; A4615; G0378; J0690; J1171; J2270; J2405; J2919; J3480; J7120; Q9967